=== PATIENT | male | born 1960 | race Caucasian/White ===

== ENCOUNTER 2020-05-07 05:33 | Emergency (ER) | payer OTHER ==
[~2020-05-07] VITALS: Ht 172.7 cm; Wt 79.4 kg
[~2020-05-07 05:33] MED LIST: HYDROCODONE-AP1 EAC6 PO; MIRALAX17 GM PO
[2020-05-07 06:17] LABS: ABSOLUTE BASOPHILS 0.1 thou/uL (0.0-0.2); ABSOLUTE EOSINOPHILS 0.3 thou/uL (0.0-0.7); ABSOLUTE LYMPHOCYTES 2.6 thou/uL (0.8-5.3); ABSOLUTE MONOCYTES 0.9 thou/uL (0.0-1.2); ABSOLUTE NEUTROPHILS 5.8 thou/uL (1.6-8.1); BASOPHILS 1.2 %; EOSINOPHILS 3.4 %; HEMATOCRIT 44.1 % (42.0-52.0); HEMOGLOBIN 14.9 gm/dL (14.0-18.0); LYMPHOCYTES 26.2 %; MCH 32.2 pg (26.0-34.0); MCHC 33.8 g/dL (28.0-37.0); MCV 95.4 fL (80.0-100.0); MONOCYTES 9.7 %; MPV 7.6 fl. (7.2-11.1); NUCLEATED RBCS 0 /100WBC; PLATELET COUNT* 283 thou/uL (150-400); POLYS 59.5 %; RBC 4.62 mil/uL (4.50-6.00); RDW-CV 13.3 % (10.5-14.5); WBC 9.7 thou/uL (4.0-11.0)
[2020-05-07 06:20] LABS: CALCIUM 8.4 mg/dL (8.5-10.1); CREATININE 1.4 mg/dL (0.6-1.3)
[2020-05-07 06:23] LABS: APTT 25.9 Seconds (25.0-31.3); INR 0.9; PROTIME 9.9 Seconds (9.20-11.50)
[2020-05-07 06:31] LABS: ALBUMIN 3.4 g/dL (3.4-5.0); TOTAL BILIRUBIN 0.3 mg/dL (<0.1-1.0); TOTAL PROTEIN 7.6 g/dL (6.4-8.2)
[2020-05-07] MEDS ORDERED: PREDNISONE 20 M20 M1 PO (08:22)
[2020-05-07] MEDS ORDERED: ZPAK PO (08:22)
[2020-05-07] MEDS ORDERED: VENTOLIN HFA 1818 GM INH (08:22)
[2020-05-07 09:00] VITALS: BP 138/77
--- NOTE | 2020-05-07 10:32 | EKG ---
[place] [address] ELECTROCARDIOGRAM REPORT Name: RIGOBERTO ZAMBRANO Room: [facility]#: [id number] Admission: 05/07/20 Attend Phys: Discharge: 05/07/20 Date of : 56 Date of Service: 05/07/20 0554 Report #: [id number] THIS REPORT FOR: //name// [facility] ED Test Date: 2020-05-07 Test Time: 05:54:28 Pat Name: RIGOBERTO ZAMBRANO Department: Room: Gender: Registry Np: : 1960 Requested By: Lita White Order Number: [id number] MD: Ramesh Edwards Measurements Intervals [place] Rate: 74 P: 72 ND: 188 QRS: 40 QRSD: 98 T: 53 QT: 371 QTc: 412 Interpretive Statements Sinus rhythm Consider left atrial enlargement Borderline low voltage, extremity leads Baseline wander in lead(s) II,III,aVR,aVL,aVF,V3,V4 No previous ECG available for comparison Electronically Signed On 05-07-2020 10:32:15 CDT by Ramesh Edwards [email or web address] <ELECTRONICALLY SIGNED> By: Ramesh Edwards MD, [facility] 05/07/20 1032 0554 0554 Ramesh Edwards MD, [facility] /EPI
== END 2020-05-07 09:01 | disposition home or self-care (01) ==
LOC: M.ERS 05:33
PROVIDERS: Personal Emergency Response Attendant
DX: J40 Bronchitis, not specified as acute or chronic (principal); F17.210 Nicotine dependence, cigarettes, uncomplicated; Z20.822 Contact with and (suspected) exposure to COVID-19